=== PATIENT | female | born 1985 | race Two or more races ===

== ENCOUNTER 2019-10-19 11:30 | Inpatient (IN) | payer OTHER ==
[~2019-10-19] VITALS: Ht 167.6 cm; Wt 86.6 kg
[2019-10-22] MEDS ORDERED: PRENATAL TABLE1 EACH PO (07:31)
== END 2019-10-24 15:29 | disposition home or self-care (01) | DRG 807 ==
LOC: LDR 10-22 10:54 → SURG-SUITE 10-22 20:34 → LDR 10-27 11:30
PROVIDERS: ADMIT Obstetrics & Gynecology; ATTEND Obstetrics & Gynecology
PROC: 10E0XZZ Delivery of Products of Conception, External Approach (ICD-10-PCS; principal; 2019-10-22)
PROC: 0KQM0ZZ Repair Perineum Muscle, Open Approach (ICD-10-PCS; 2019-10-22)
PROC: 3E033VJ Introduction of Other Hormone into Peripheral Vein, Percutaneous Approach (ICD-10-PCS; 2019-10-22)
PROC: 10907ZC Drainage of Amniotic Fluid, Therapeutic from Products of Conception, Via Natural or Artificial Opening (ICD-10-PCS; 2019-10-22)
PROC: 4A1HXCZ Monitoring of Products of Conception, Cardiac Rate, External Approach (ICD-10-PCS; 2019-10-22)
DX: O70.1 Second degree perineal laceration during delivery (principal); Z37.0 Single live birth; Z3A.39 39 weeks gestation of pregnancy; Z20.828 Contact with and (suspected) exposure to other viral communicable diseases

== ENCOUNTER 2019-10-22 07:21 | Outpatient (CLI) | payer OTHER ==
[2019-10-22] MEDS ORDERED: PRENATAL TABLE1 EACH PO (07:31)
== END 2019-10-22 13:31 | disposition still patient (30) ==
LOC: OBS/DEL 07:21
PROVIDERS: ATTEND Obstetrics & Gynecology
DX: O47.1 False labor at or after 37 completed weeks of gestation (principal)